=== PATIENT | male | born 1955 | race Caucasian/White ===

== ENCOUNTER 2019-07-16 15:14 | Emergency (ER) | payer OTHER, SELFPAY ==
[~2019-07-16] VITALS: Ht 172.7 cm; Wt 90.7 kg
[2019-07-16 15:39] VITALS: Ht 172.7 cm; Wt 90.7 kg
[2019-07-16 16:16] LABS: BASOPHIL % 0.4 % (0-2); RED CELL DISTRIBUTION WIDTH 12.9 % (11.5-14.5)
[2019-07-16 16:24] LABS: PLATELET COUNT 120 x10^3mcL (130-400)
[2019-07-16 16:36] LABS: CALCIUM 8.3 mg/dL (8.5-10.1); CARBON DIOXIDE 27.2 mmol/L (21-32); CHLORIDE SERUM 101 mmol/L (98-107); GFR1 > 60 mL/min; GLUCOSE SERUM 141 mg/dL (74-106); POTASSIUM SERUM 3.3 mmol/L (3.5-5.1); SODIUM SERUM 137 mmol/L (136-145)
[2019-07-16 16:40] LABS: ALKALINE PHOSPHATASE 48 U/L (46-116); ALT/SGPT 49 U/L (16-63); AMYLASE 80 U/L (25-115); AST/SGOT 64 U/L (15-37); BILIRUBIN TOTAL 0.42 mg/dL (0.20-1.00); LIPASE 335 IU/L (73-393)
[2019-07-16 19:30] VITALS: BP 107/72
== END 2019-07-16 19:30 | disposition home or self-care (01) ==
LOC: ED 15:14
PROVIDERS: Emergency Medicine
DX: U07.1 COVID-19 (principal); R50.9 Fever, unspecified
CPT/HCPCS: J0456; J2405; J3490; J7030; J7050